=== PATIENT | female | born 1970 | race Caucasian/White ===

== ENCOUNTER 2019-07-19 13:17 | Observation (INO) ==
[2019-07-19 14:07] LABS: Basophils % 0.7 %; Eosinophils # 0.1 K/mcL (0.0-0.6); Eosinophils % 1.3 %; Hematocrit 41.3 % (35.3-44.9); Hemoglobin 13.8 g/dL (11.5-15.4); Immature Granulocytes % 0.4 % (0-4); Lymphocytes # 1.3 K/mcL (0.6-4.6); Lymphocytes % 23.7 %; Mean Corpuscular HGB Conc 33.4 g/dL (31.6-35.5); Mean Corpuscular Hemoglobin 30.8 pg (28.0-33.3); Mean Corpuscular Volume 92.2 fL (83.0-100.0); Mean Platelet Volume 10.6 fL (9.4-12.4); Monocytes # 0.5 K/mcL (0.0-1.3); Monocytes % 8.2 %; Neutrophils # 3.6 K/mcL (1.6-8.9); Platelet Count 139 K/mcL (140-400); Red Blood Count 4.48 M/mcL (3.82-4.97); Red Cell Distribution Width 13.1 % (11.5-14.5); Segmented Neutrophils % 65.7 %; White Blood Count 5.5 K/mcL (4.3-11.1)
[2019-07-19 14:27] LABS: BUN/Creatinine Ratio 29 (6-26); Blood Urea Nitrogen 22 mg/dL (6-20); Calcium 9.2 mg/dL (8.6-10.3); Carbon Dioxide 28 mEq/L (23-29); Chloride 104 mEq/L (98-107); Glucose 85 mg/dL (70-105); Magnesium 2.2 mg/dL (1.6-2.6); Osmolality,Calculated 299 (280-300); Potassium 3.9 mEq/L (3.5-5.1); Sodium 143 mEq/L (136-145); Valproate 94 mcg/mL (50-100); eGFR For African Americans > 60 (> 60); eGFR For Non-African Americans > 60 (> 60)
[2019-07-19 14:28] LABS: Bilirubin,Urine Negative (Negative); Blood,Urine Small (Negative); Color,Urine Yellow (Yellow); Glucose,Urine (UA) Normal (Normal); Ketones,Urine Negative (Negative); Leukocyte Esterase,Urine Negative (Negative); Nitrite,Urine Negative (Negative); PH,Urine 6.5 pH Units (5.0-8.0); Protein,Urine Trace mg/dL (Neg-Trace); Specific Gravity,Urine 1.021 (1.010-1.025); Urobilinogen,Urine Normal (Normal)
[2019-07-19 14:31] LABS: Hyaline Casts,Urine None Seen per lpf (None-Few); Squamous Epithelial Cell,Urine Many per lpf (None-Few)
[2019-07-19 14:35] LABS: Clarity,Urine Clear (Clear)
[2019-07-19 14:41] LABS: Amphetamine Screen,Urine Negative ng/mL (Cutoff=1000); Barbiturate Screen,Urine Negative ng/mL (Cutoff=200); Benzodiazepines Screen,Urine Negative ng/mL (Cutoff=200); Cannabinoid Screen,Urine Positive ng/mL (Cutoff = 50); Cocaine Screen,Urine Negative ng/mL (Cutoff= 300); Opiate Screen,Urine Negative ng/mL (Cutoff=300); Phencyclidine Screen,Urine Negative ng/mL (Cutoff=25)
[2019-07-19 14:44] LABS: Bacteria,Urine Few per hpf (None-Few); RBC,Urine 0-3 per hpf (0-3)
[2019-07-19] MEDS ORDERED: Naloxone 0.4 MG/ML INJ IVP PRN (16:01)
[2019-07-19] MEDS ORDERED: *HR* LORazepam 1 MG TABLET PO PRN (17:05)
[2019-07-19] MEDS ORDERED: 0.9 % Sodium Chloride 1,000 ML IVC SCH (17:15)
[2019-07-19 18:08] LABS: Thyroid Stimulating Hormone 6.255 mcIU/mL (0.340-5.600); Triiodothyronine (T3) Free 2.83 pg/mL (2.50-3.90)
[2019-07-19] MEDS ORDERED: Ibuprofen 600 MG TABLET PO ONE (21:02)
[2019-07-19] MEDS: Divalproex (24 HR) 500 MG TABLET PO SCH (21:12)
[2019-07-19] MEDS: lamoTRIgine 100 MG TABLET PO SCH (21:12)
[2019-07-20 07:15] VITALS: BP 122/64
[2019-07-20] MEDS: Divalproex (24 HR) 500 MG TABLET PO SCH (07:52)
[2019-07-20] MEDS: lamoTRIgine 100 MG TABLET PO SCH (07:52)
[2019-07-20] MEDS ORDERED: *HR* LORazepam 2 MG/ML VIAL IVP PRN (08:01)
== END 2019-07-20 11:37 | disposition home or self-care (01) ==
LOC: 3BNU 13:17 → EMEROOARM 13:17 → SUATTDRO 17:27 → 3BNU 18:10
PROVIDERS: ADMIT Pharmacist; ATTEND Student in an Organized Health Care Education/Training Program